=== PATIENT | male | born 1955 | race Caucasian/White ===

== ENCOUNTER 2021-03-25 19:40 | Emergency (ER) | payer MEDICARE, OTHER ==
[~2021-03-25] VITALS: Ht 170.2 cm; Wt 83.9 kg
--- NOTE | 2021-03-25 19:40 | NUR ---
PT JESSIE FROM [place] C/O ANXIETY. 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 PT AAOX4, CALM AND COOPERATIVE. VITAL SIGNS STABLE. AMBULATORY WITH STEADY GAIT. PT BROUGHT TO WAITING ROOM PENDING BED AVAILABLE
--- NOTE | 2021-03-25 21:40 | NUR ---
SPOKE WITH PATIENT OUTSIDE IN WAITING ROOM. PT HAS BEEN MAKING PHONE CALLS WITH [facility] FROM THEIR [facility]AC[facility]. PT DEBATING ON BEING SEEN AT THIS TIME
--- NOTE | 2021-03-25 22:15 | NUR ---
PT AMBULATORY TO ER BED 14. PT NOW STATES HE IS SUICIDAL AND REQUESTING VOLUNTARY ADMISSION TO PSYCH FACILITY. SUICIDAL PRECAUTIONS INITIATED. PT PLACED IN GOWN, BELONGINGS COLLECTED AND LOCKED IN PATIENT LOCKER. SITTER AT BEDSIDE. WILL CONTINUE TO MONITOR
[2021-03-25 22:54] LABS: BASOPHILS # (AUTO) 0.1 /CMM (0.0-0.2); BASOPHILS % (AUTO) 0.8 % (0.0-2.0); EOSINOPHILS % (AUTO) 0.9 % (0.0-6.0); HEMATOCRIT 45 % (39-51); HEMOGLOBIN 14.8 g/dL (13.5-17.5); LYMPHOCYTES # (AUTO) 2.3 /CMM (0.8-4.8); LYMPHOCYTES % (AUTO) 17.4 % (20.0-44.0); MEAN CORPUSCULAR HGB CONC 33 g/dl (31.0-36.0); MEAN CORPUSCULAR VOLUME 87 fL (80-96); MONOCYTES # (AUTO) 1.1 /CMM (0.1-1.30); MONOCYTES % (AUTO) 8.4 % (2.0-12.0); NEUTROPHILS # (AUTO) 9.6 /CMM (1.8-8.9); NEUTROPHILS % (AUTO) 72.5 % (43.0-81.0); PLATELET COUNT (AUTO) 334 /CMM (150-450); RED BLOOD CELL COUNT(AUTO) 5.11 MIL/uL (4.5-6.0); WHITE BLOOD COUNT (AUTO) 13.2 K/uL (4.3-11.0)
[2021-03-25 23:03] LABS: CALCIUM, SERUM 9.3 mg/dL (8.5-10.1); CARBON DIOXIDE 24 mmol/L (21-32); CHLORIDE 104 mmol/L (98-107); CREATININE 1.2 mg/dL (0.6-1.3); GLUCOSE 81 mg/dL (74-106); POTASSIUM 4.6 mmol/L (3.5-5.1); SODIUM SERUM 140 mmol/L (136-145); UREA NITROGEN, BLOOD 25 mg/dL (7-18)
[2021-03-25 23:09] LABS: ACETAMINOPHEN < 2 ug/ml (10-30); ALANINE AMINOTRANSFERASE 22 U/L (12-78); ALBUMIN 4.2 g/dL (3.4-5.0); ALCOHOL, BLOOD < 3 mg/dL (0-0); ALKALINE PHOSPHATASE 117 U/L (46-116); ASPARTATE AMINOTRANSFERASE 15 U/L (15-37); BILIRUBIN,DIRECT 0.1 mg/dL (0.0-0.2); BILIRUBIN,TOTAL 0.2 mg/dL (0.2-1.0); TOTAL PROTEIN, SERUM 7.7 g/dL (6.4-8.2)
--- NOTE | 2021-03-26 | NUR ---
URINE COLLECTED, SENT TO LAB.
[2021-03-26 00:06] LABS: BILIRUBIN,URINE Negative (NEGATIVE); COLOR,URINE YELLOW (YELLOW); LEUKOCYTE ESTERASE ,URINE Negative (NEGATIVE); NITRITE, URINE Negative (NEGATIVE); PH,URINE 5.5 (5.0-8.0); PROTEIN,URINE Negative (NEGATIVE); UGLUCOSE Negative (NEGATIVE); UROBILINOGEN,URINE 0.2 EU/dL (0.2)
--- NOTE | 2021-03-26 01:39 | NUR ---
CLINICALS FAXED TO [facility].
--- NOTE | 2021-03-26 04:02 | NUR ---
SPOKE WITH ART FROM [facility]. PER ART, ACCEPTANCE INFORMATION STILL PENDING D/T INSURANCE. WILL CALL BACK WITH MORE INFORMATION
--- NOTE | 2021-03-26 06:42 | NUR ---
[facility] UNABLE TO ACCEPT PT. PT REMAINS SI. ER AWARE.
--- NOTE | 2021-03-26 08:00 | NUR ---
THE PATIENT ALERT AND ORIENTED X3. RESTING IN BED. RREQUESTED NOT TO BE ASKED ANY QUESTIONS AT THIS TIME AND STATED HE WANTS TO SLEEP. PATIENT WISHES ARE RESPECTED.
[2021-03-26] MEDS ORDERED: OMEP20CA15 PO (10:44)
--- NOTE | 2021-03-26 11:50 | NUR ---
[employer] Instructor consult: donor services manager consult requested for suicidal ideations and homelessness. Patient is a 65-year-old, male. SW met with patient at his bedside on the emergency department. Patient is alert and oriented x4. Patient presented irritable and stated that he was frustrated. Patient is well-groomed. Per chart, patient was [place] 03[place]/21 for abdominal pain. Upon consult, patient verbalized that he is experiencing suicidal ideation without a plan and requested voluntary psychiatric hospitalization at [facility]. Per ED staff, clinicals have been faxed by ED research staff member to [facility] for placement. Patient stated that he is homeless and has been homeless for the last five years. Patient verbalized that he was previously living in his car, but his car is currently being repaired. Patient stated that he is originally from [facility] and plans to return there. Patient is ambulatory and stated that he is independent with his ADLs. Patient stated that he currently receives SSI. SW assessed patients history of substance abuse and patient denied current or history of substance abuse. Patient denied any history of mental illness and stated that he has felt anxious because people have stressed him out. Patient did not want to further elaborate regarding his triggers, and stated, you dont need to know. SW offered the patient homeless resources and patient declined the resources stating, I dont need them, theyre not going to help me. Patient signed the homeless waiver and SW filed the waiver in the patients chart. SW discussed discharge plan with the patient and patient agrees to be discharged to [facility], if accepted. PLAN: Patient plans to be discharged to [facility], if accepted. ED research staff member have faxed clinicals to [facility]. SW will follow up with his discharge plan. No further SS interventions at this time, however, SW will remain available as needed.
--- NOTE | 2021-03-26 13:27 | NUR ---
RECIEVED A CALL FROM MIKY FROM [facility]. PER THEIR POLICY CANNOT ACCEPT PATIENT UNTIL AFTER 1500 DUE TO BEING WITHIN 24 HOURS FROM DISCHARGE.
--- NOTE | 2021-03-26 13:43 | NUR ---
THE PATIENT HAVING LUNCH. DENIES PAIN. IN ROOM AIR AND DENIES SOB. RSPIRATION IS REGULAR AND UNLABORED. WILL CONTINUE TO MONITOR THE PATIENT.
--- NOTE | 2021-03-26 14:42 | NUR ---
CALLED [facility] FOR TRANSPORT TO [facility]. ETA 45 MINUTES.
[2021-03-26 16:07] VITALS: BP 118/71
--- NOTE | 2021-03-26 16:08 | NUR ---
patient picked up by private ambulance in no distress, going to [facility]
== END 2021-03-26 16:08 ==
LOC: ER 19:40
DX: R45.851 Suicidal ideations (principal); F12.90 Cannabis use, unspecified, uncomplicated; Z59.0 Homelessness; M19.90 Unspecified osteoarthritis, unspecified site; Z20.822 Contact with and (suspected) exposure to COVID-19
CPT/HCPCS: 36415; 80048-TC; 80076-TC; 85025-TC; C9803; G0480

== ENCOUNTER 2021-04-23 21:19 | Emergency (ER) | payer MEDICARE, OTHER ==
[~2021-04-23] VITALS: Ht 170.2 cm; Wt 81.6 kg
[~2021-04-23 21:19] MED LIST: OMEP20CA15 PO
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
--- NOTE | 2021-04-23 21:41 | NUR ---
CALLED LAB FOR COVID SWAB.
[2021-04-23 21:53] LABS: BASOPHILS % (AUTO) 0.5 % (0.0-2.0); EOSINOPHILS % (AUTO) 2.1 % (0.0-6.0); HEMATOCRIT 39 % (39-51); LYMPHOCYTES # (AUTO) 2.1 /CMM (0.8-4.8); LYMPHOCYTES % (AUTO) 23.9 % (20.0-44.0); MEAN CORPUSCULAR HGB CONC 33 g/dl (31.0-36.0); MEAN CORPUSCULAR VOLUME 89 fL (80-96); MONOCYTES # (AUTO) 0.7 /CMM (0.1-1.30); MONOCYTES % (AUTO) 8.3 % (2.0-12.0); NEUTROPHILS # (AUTO) 5.9 /CMM (1.8-8.9); NEUTROPHILS % (AUTO) 65.2 % (43.0-81.0); PLATELET COUNT (AUTO) 316 /CMM (150-450)
[2021-04-23 21:58] LABS: BILIRUBIN,URINE Negative (NEGATIVE); COLOR,URINE YELLOW (YELLOW); LEUKOCYTE ESTERASE ,URINE Negative (NEGATIVE); NITRITE, URINE Negative (NEGATIVE); PH,URINE 5.5 (5.0-8.0); PROTEIN,URINE Negative (NEGATIVE); UGLUCOSE Negative (NEGATIVE); UROBILINOGEN,URINE 0.2 EU/dL (0.2)
[2021-04-23 22:05] LABS: ACETAMINOPHEN < 10 ug/ml (10-30); ALANINE AMINOTRANSFERASE 23 U/L (12-78); ALBUMIN 3.5 g/dL (3.4-5.0); ALCOHOL, BLOOD 7 mg/dL (0-0); ALKALINE PHOSPHATASE 105 U/L (46-116); ASPARTATE AMINOTRANSFERASE 15 U/L (15-37); BILIRUBIN,DIRECT 0.1 mg/dL (0.0-0.2); BILIRUBIN,TOTAL 0.2 mg/dL (0.2-1.0); CALCIUM, SERUM 8.8 mg/dL (8.5-10.1); CARBON DIOXIDE 26 mmol/L (21-32); CHLORIDE 106 mmol/L (98-107); CREATININE 1.4 mg/dL (0.6-1.3); GLUCOSE 104 mg/dL (74-106); POTASSIUM 4.1 mmol/L (3.5-5.1); SODIUM SERUM 142 mmol/L (136-145); TOTAL PROTEIN, SERUM 6.6 g/dL (6.4-8.2); UREA NITROGEN, BLOOD 28 mg/dL (7-18)
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
--- NOTE | 2021-04-23 22:27 | NUR ---
BACK FROM CT
[2021-04-23] MEDS ORDERED: TDAP [DIPH/PERTUSSIS/TET] 0.5 ML VIAL IM ONE ×2 (22:30→22:36)
[2021-04-23] MEDS ORDERED: ACETAMINOPHEN 325 MG TABLET ONE (22:36)
[2021-04-23] MEDS: ACETAMINOPHEN 325 MG TABLET PO ONE ×2 (22:37→22:42)
--- NOTE | 2021-04-23 23:30 | NUR ---
Jamilah sanchez in [facility] - 04/23/21 at 2331 by LJ CALLED [facility] REGARDING CT SCAN
--- NOTE | 2021-04-23 23:31 | NUR ---
CALLED [facility] REGARDING CT SCAN
[2021-04-23] MEDS ORDERED: ONDANSETRON 4 MG TAB.RAPDIS ONE (23:51)
[2021-04-23] MEDS ORDERED: AMOX/CLAVULANATE 875 MG TABLET ONE (23:54)
--- NOTE | 2021-04-23 23:55 | NUR ---
pt vomited dose of augmentin. aware.
[2021-04-24] MEDS ORDERED: ONDANSETRON 4 MG TAB.RAPDIS SL ONE
[2021-04-24] MEDS ORDERED: AMOX/CLAVULANATE 875 MG TABLET ONE (00:03)
[2021-04-24] MEDS ORDERED: ONDANSETRON HCL/PF 4 MG/2 ML VIAL ONE (00:03)
--- NOTE | 2021-04-24 00:13 | NUR ---
faxed clinicals to [facility]
--- NOTE | 2021-04-24 00:19 | NUR ---
Jamilah sanchez in [facility] - 04/24/21 at 0019 by REBECCA [phone]
[2021-04-24] MEDS ORDERED: AMOX/CLAVULANATE 875 MG TABLET PO ONE ×2 (00:30)
[2021-04-24] MEDS ORDERED: ONDANSETRON HCL/PF 4 MG/2 ML VIAL IV ONE (00:30)
--- NOTE | 2021-04-24 01:00 | NUR ---
Pt refused iv and 4mg of zofran ivp. aware
--- NOTE | 2021-04-24 01:28 | NUR ---
called [facility]; fax rec'd. spoke to monica
--- NOTE | 2021-04-24 02:15 | NUR ---
Patient is resting comfortably in bed with eyes closed. Easily aroused. VSS
--- NOTE | 2021-04-24 04:30 | NUR ---
followed up with [facility]; spoke to art.
--- NOTE | 2021-04-24 06:08 | NUR ---
PT ACCEPTED AT: [facility] [address] [facility] #REPORT [phone] ext [phone]
--- NOTE | 2021-04-24 06:18 | NUR ---
[facility] 1000 ETA
[2021-04-24] MEDS ORDERED: LIDOCAINE 1% INJ 50 ML MDV IJ ONE (07:51)
[2021-04-24] MEDS ORDERED: LIDOCAINE /MPF 1% VIAL 5 ML VIAL IJ ONE (08:00)
--- NOTE | 2021-04-24 08:00 | NUR ---
THE PATIENT IS ALERT AND ORIENTED X4. DENIES PAIN. IN ROOM AIR AND DENIES SOB. RESPIRATION REGULAR AND UNLABORED. REFUSES VITAL SIGNS TO BE CHECKED. WANT TO SEELP. THE PATIENT`S WISHES ARE RESPECTED. WILL CONTINUE TO MONITOR THE PATIENT.
--- NOTE | 2021-04-24 08:27 | NUR ---
REPORT GIVEN TO NURSE BROTHERS FROM [facility]
--- NOTE | 2021-04-24 08:54 | NUR ---
THE PATIENT REFUSED BREAKFAST. DENIES ANY DISTRESS. WANT TO SLEEP. PATIENT`S WISHES ARE RESPECTED.
--- NOTE | 2021-04-24 11:00 | NUR ---
THE PATIENT IS TRANFSERED TO [facility] IN STABLE CONDITION AND VIA RRANGED TRANSPO.
[2021-04-24 11:08] VITALS: BP 135/75
== END 2021-04-24 11:00 ==
LOC: ER 21:24
DX: R45.851 Suicidal ideations (principal); S02.2XXA Fracture of nasal bones, initial encounter for closed fracture; S06.9X0A Unspecified intracranial injury without loss of consciousness, initial encounter; S00.83XA Contusion of other part of head, initial encounter; S00.81XA Abrasion of other part of head, initial encounter; Y04.2XXA Assault by strike against or bumped into by another person, initial encounter; W18.39XA Other fall on same level, initial encounter; Y93.89 Activity, other specified; Y92.238 Other place in hospital as the place of occurrence of the external cause; J32.0 Chronic maxillary sinusitis; Z20.822 Contact with and (suspected) exposure to COVID-19; F32.9 Major depressive disorder, single episode, unspecified
CPT/HCPCS: 36415; 70450; 70486; 80048; 80076; 80143; 80307; 80320; 81003; 85025; 87426; 90471; 90715; 99285; A6403; J3490; C9803; G0480; J2405; Q0162